=== PATIENT | female | born 2000 | race Two or more races ===

== ENCOUNTER 2022-02-15 00:43 | Emergency (ER) | payer BC ==
[~2022-02-15] VITALS: Ht 167.6 cm; Wt 64.6 kg
--- NOTE | 2022-02-15 01:08 | PHYS DOC ---
General Adult EDM: Chief Complaint: BACK PAIN OR INJURY HPI: HPI: Patient is a 21 year old female with several months of generalized thoracic and lower back pain. The pain is symmetric and diffuse. No specific injury or trauma reported. No chest pain or dyspnea reported. No pleuritic pain. No reported abdominal pain, nausea, vomiting, diarrhea. No urinary symptoms reported. LMP current. The pain is often worse with movement and changes in position. She has not sought treatment from her primary care physician. She has not taken any medications for this pain. She denies any acute changes in symptoms today. She denies radiation of pain. She denies numbness or tingling or motor weakness. She denies any stool or urine incontinence. She denies any history of IV drug use. No fevers or chills reported. Review of Systems: Review of Systems: Constitutional: Denies fever or chills. [] HENT: Denies nasal congestion or sore throat. [] Respiratory: Denies cough or shortness of breath. [] Cardiovascular: Denies chest pain or edema. [] GI: Denies abdominal pain, nausea, vomiting, or diarrhea : Denies urinary symptoms or incontinence Musculoskeletal: Denies back pain. No joint pain or swelling. Integument: Denies rash. [] Neurologic: Denies headache, focal weakness or sensory changes. Denies numbness or tingling or motor weakness. Psychiatric: Denies depression or anxiety. [] Heart Score: C/O Chest Pain: No Risk Factors: Risk Factors: DM, Current or recent (<one month) smoker, HTN, HLP, family history of CAD, obesity. Risk Scores: Score 0 - 3: 2.5% MACE over next 6 weeks - Discharge Home Score 4 - 6: 20.3% MACE over next 6 weeks - Admit for Clinical Observation Score 7 - 10: 72.7% MACE over next 6 weeks - Early Invasive Strategies Allergies: Allergies: Allergies Coded Allergies Type Severity Reaction Last Updated Verified No Known Drug Allergies 02/15/22 No Physical Exam: PE: Constitutional: Well developed, well nourished, no acute distress, non-toxic appearance. [] HENT: Normocephalic, atraumatic Eyes: Sclera are clear and anicteric Neck: Trachea is midline, no JVD Cardiovascular: Regular rate and rhythm, +2 radial and +2 dorsalis pedis pulses bilaterally. Lungs & Thorax: Bilateral breath sounds clear to auscultation, tachypnea, no rales, rhonchi or wheezes. No evidence of chest or thorax trauma Abdomen: Abdomen soft, nondistended, nontender to palpation. No palpable masses organomegaly. No CVA tenderness. No flank abdominal ecchymoses. Skin: Warm, dry, no erythema, no rash. [] Back: No deformity. Full range of motion. No midline tenderness or step-offs. Diffuse thoracic and lumbar paraspinal soft tissue tenderness. No CVA tenderness. Extremities: No tenderness, no cyanosis, no clubbing, ROM intact, no edema. No calf tenderness. Neurologic: Alert and oriented X 3, normal motor function, normal sensory function, no focal deficits noted. 5 out of 5 motor strength all 4 extremities. Ambulatory with a steady and nonantalgic gait. Psychologic: Affect normal, judgement normal, mood normal. [] EKG: EKG: [] Radiology/Procedures: Radiology/Procedures: IMAGING REPORT Signed PATIENT: MARIANN HARPACCOUNT: [id number] : 2000 LOCATION: ER AGE: 21 SEX: F EXAM STATUS: REG ER ORD. PHYSICIAN: JESSE URIBE DO REASON: pain PROCEDURE: THORACIC SPINE 3V Thoracic spine x-rays 3 HISTORY: Back pain. FINDINGS: Slight thoracic scoliosis. Thoracic vertebral body height and alignmen t is intact. No fracture evident. Intervertebral disc height preserved. No paraspinal stripe widening. IMPRESSION: No acute osseous injury. Lumbar spine x-rays 3 views HISTORY: Back pain. FINDINGS: Lumbar vertebral body height and alignment intact. Intervertebral disc height preserved. No fracture evident. IMPRESSION: No acute osseous injury. Electronically signed by: Shabbir Mays MD (02/15/2022 1:52 AM) [facility] [place] and SIGNED BY: SHABBIR MAYS MD DATE: 02/15/22 0150 Course & Med Decision Making: Course & Med Decision Making Pertinent Labs and Imaging studies reviewed. (See chart for details) P.o. ibuprofen is given for pain. Imaging studies are unremarkable. UA is unremarkable. I discussed the findings, differential diagnosis and plan of care with her. I told her to follow-up with a primary care physician. I discussed home care instructions, she may alternate ice and heat. She may take [id number] Tylenol and/or ibuprofen as needed. Return precautions are given. Blayne Disclaimer: Blayne Disclaimer: This electronic medical record was generated, in whole or in part, using a voice recognition dictation system. Departure Departure Impression: Primary Impression: Back pain Qualified Codes: M54.9 - Dorsalgia, unspecified; G89.29 - Other chronic pain Disposition: HOME / SELF CARE / HOMELESS Condition: STABLE Referrals: NO PCP (PCP) Patient Instructions: Back Pain, Adult Additional Instructions: You may alternate ibuprofen and Tylenol as needed for pain. You may alternate ice and heat. Return to the ER for acute injury or trauma, chest pain, shortness of breath, temperature 100.4 or higher, painful urination, urinary or stool incontinence or for any other concerns. Follow-up with your primary care physician. JESSE URIBE DO Feb 15, 2022 01:08
[2022-02-15] MEDS ORDERED: IBUPROFEN 200 MG TABLET. PO ONE (01:15)
[2022-02-15 01:33] LABS: BILIRUBIN,URINE NEGATIVE (NEG); CLARITY,URINE CLEAR; COLOR,URINE YELLOW; NITRITE,URINE NEGATIVE (NEG); PH,URINE 6.5 (<5.0-8.0); PROTEIN,URINE NEGATIVE (NEG-TRACE); UROBILINOGEN,URINE 0.2 mg/dL (0.2 mg/dL)
[2022-02-15 01:34] LABS: BACTERIA,URINE FEW /HPF (0-FEW); RBC,URINE 0 /HPF (0-2); WBC,URINE OCC /HPF (0-4)
--- NOTE | 2022-02-15 01:54 | RAD ---
Thoracic spine x-rays 3 HISTORY: Back pain. FINDINGS: Slight thoracic scoliosis. Thoracic vertebral body height and alignment is intact. No fract ure evident. Intervertebral disc height preserved. No paraspinal stripe widening. IMPRESSION: No acute osseous injury. Lumbar spine x-rays 3 views HISTORY: Back pain. FINDINGS: Lumbar vertebral body height and alignment intact. Intervertebral disc height preserved. No fracture evident. IMPRESSION: No acute osseous injury. Electronically signed by: Trevon Harrison MD (02/15/2022 1:52 AM) [facility]
--- NOTE | 2022-02-15 01:54 | RAD ---
Thoracic spine x-rays 3 HISTORY: Back pain. FINDINGS: Slight thoracic scoliosis. Thoracic vertebral body height and alignment is intact. No fract ure evident. Intervertebral disc height preserved. No paraspinal stripe widening. IMPRESSION: No acute osseous injury. Lumbar spine x-rays 3 views HISTORY: Back pain. FINDINGS: Lumbar vertebral body height and alignment intact. Intervertebral disc height preserved. No fracture evident. IMPRESSION: No acute osseous injury. Electronically signed by: Trevon Harrison MD (02/15/2022 1:52 AM) [facility]
[2022-02-15 02:37] VITALS: BP 103/57
== END 2022-02-15 03:09 | disposition home or self-care (01) ==
LOC: ER 00:43
DX: M54.6 Pain in thoracic spine (principal); M54.50 Low back pain, unspecified; G89.29 Other chronic pain
CPT/HCPCS: 72072; 72100; 81001; 81025; 99284